=== PATIENT | female | born 1970 | race Caucasian/White ===

== ENCOUNTER → 2019-12-16 | Outpatient (CLI) | payer BC ==
--- NOTE | 2019-12-16 13:56 | CT ---
EXAMINATION TYPE: CT brain wo con DATE OF EXAM: 12/16/2019 COMPARISON: None HISTORY: Headaches Unenhanced CT of the brain was performed. The ventricles, basal cisterns and sulci overlying the cerebral convexities demonstrate a normal appe arance. There is no evidence for intracranial hemorrhage or sulcal effacement. No mass effects are seen. Osseous calvarium is intact. If symptoms persist consider MRI as clinically warranted. IMPRESSION: 1. No acute intracranial process is seen at this time.
[2019-12-16 16:15] LABS: Anisocytosis Slight; Basophils % (A) 0 %; Eosinophils # (A) 0.1 k/uL (0-0.7); Eosinophils % (A) 2 %; HCT 33.5 % (34.0-46.0); Hypochromasia Marked; Lymphocytes # (A) 1.3 k/uL (1.0-4.8); Lymphocytes % (A) 25 %; MCH 22.7 pg (25.0-35.0); MCHC 29.7 g/dL (31.0-37.0); MCV 76.3 fL (80.0-100.0); Mean Platelet Volume 7.5; Microcytosis Slight; Monocytes # (A) 0.2 k/uL (0-1.0); Monocytes % (A) 3 %; Neutrophils # (A) 3.6 k/uL (1.3-7.7); Neutrophils % (A) 68 %; Platelet Count 342 k/uL (150-450); RBC 4.39 m/uL (3.80-5.40); RDW 16.4 % (11.5-15.5); WBC 5.2 k/uL (3.8-10.6)
[2019-12-16 16:24] LABS: ALT 14 U/L (4-34); AST 22 U/L (14-36); African American GFR (CKD) >90 (>60 ml/min/1.73 sqM); Albumin 4.1 g/dL (3.5-5.0); Alkaline Phosphatase 50 U/L (38-126); Anion Gap 9 mmol/L; Blood Urea Nitrogen 11 mg/dL (7-17); Carbon Dioxide 24 mmol/L (22-30); Chloride 105 mmol/L (98-107); Glucose 87 mg/dL (74-99); Non-African American GFR(CKD) >90 (>60 ml/min/1.73 sqM); Potassium 3.9 mmol/L (3.5-5.1); Sodium 138 mmol/L (137-145); Total Bilirubin 0.7 mg/dL (0.2-1.3); Total Protein 6.9 g/dL (6.3-8.2)
[2019-12-16 16:45] LABS: Creatine Kinase MB 0.7 ng/mL (0.0-2.4); Troponin I <0.012 ng/mL (0.000-0.034)
== END | disposition home or self-care (01) ==
LOC: RADCTMAIN 13:20
PROVIDERS: ATTEND Nurse Practitioner Family
DX: R51 Headache (principal); R53.83 Other fatigue; R05 Cough; M79.602 Pain in left arm
CPT/HCPCS: 36415; 70450; 80053; 82553; 84484; 85025; 87502; 93005

== ENCOUNTER → 2020-03-16 | Outpatient (CLI) | payer BC ==
--- NOTE | 2020-03-16 10:27 | US ---
EXAMINATION TYPE: US transvaginal DATE OF EXAM: 03/16/2020 COMPARISON: NONE CLINICAL HISTORY: N92.0 Menorrhagia. Patient has had the same IUD for 12 or 13 years. TECHNIQUE: Transvaginal (TV). Date of LMP: 02/22/20 EXAM MEASUREMENTS: Uterus: 13.9 x 11.1 x 10.0 cm Endometrial Stripe: 1.1 cm Right Ovary: Obscured by overlying bowel gas Left Ovary: 3.9 x 3.2 x 2.7 cm 1. Uterus: fibroid measuring 3.8 x 3.5 x 3.6cm, bulky, heterogeneous 2. Endometrium: wnl 3. Right Ovary: Obscured by overlying bowel gas 4. Left Ovary: ovarian cyst measuring 3.1 x 2.5 x 2.2cm 5. Bilateral Adnexa: wnl 6. Posterior cul-de-sac: wnl Patient has the same IUD that she had in at her previous ultrasound in 2010. The IUD does not appear to be in the position it was in at the time. It is difficult to visualize. IMPRESSION: 1. Leiomyomatous change of the uterus. 2. Left ovarian cystic lesion may reflect a functional ovarian cyst. This could be confirmed with fol low-up study in 6 weeks. 3. IUD is noted however difficult to visualize given uterine heterogeneity.
== END | disposition home or self-care (01) ==
LOC: RADUSWWP 09:34
PROVIDERS: ATTEND Family Medicine
DX: N83.202 Unspecified ovarian cyst, left side (principal); D25.9 Leiomyoma of uterus, unspecified; Z97.5 Presence of (intrauterine) contraceptive device
CPT/HCPCS: 76830

== ENCOUNTER → 2020-03-17 | Outpatient (CLI) | payer BC ==
--- NOTE | 2020-03-17 10:36 | MM ---
Reason for exam: clinical finding. Last mammogram was performed 11 years and 7 months ago. History: Patient has history of other cancer at age 29. Physical Findings: Nurse did not find any significant physical abnormalities on exam. MG Diagnostic Mammo w CAD CHELO Bilateral CC, MLO, and XCCL view(s) were taken. The breast tissue is heterogeneously dense. This may lower the sensitivity of mammography. Finding: There are typically benign round, grouped/clustered calcifications in both breasts.There is a chronic nodularity in the left breast upper outer quadrant. These results were verbally communicated with the patient and result sheet given to the patient on 03/17/20. ASSESSMENT: Incomplete: need additional imaging evaluation, BI-RAD 0 RECOMMENDATION: Ultrasound of both breasts. (left nodularity, right focal pain)
--- NOTE | 2020-03-19 08:46 | USB ---
Reason for exam: additional evaluation requested from abnormal screening. History: Patient has history of other cancer at age 29. US Breast Limited BILAT Technologist: Nadja Navarrete Right limited breast ultrasound including focal area of concern, retroareolar and axilla demonstrates a 2.2 x 2.6 x 0.8cm oval, cystic lesion at 9 o'clock and a 0.8 x 0.7 x 0.5cm round, irregular, hypoechoic to echoic lesion at 9 o'clock, questionably corresponding to distortion on XCCL view , for which a biopsy is recommended. Left limited breast ultrasound including focal area of concern, retroareolar and axilla demonstrates a 0.6 x 0.6 x 0.6cm cystic lesion with debris at 3 o'clock, ducts at the posterior nipple, a 2.0 x 1.6 x 1.1cm cystic lesion with echoes at 1 o'clock and a 0.6 x 0.9 x 0.8cm round, irregular, anechoic to hypoechoic lesion at 1 o'clock for which a biopsy is recommended. These results were verbally communicated with the patient and result sheet given to the patient on 03/17/20. ASSESSMENT: Suspicious, BI-RAD 4 RECOMMENDATION: Ultrasound core biopsy of both breasts. Called Dr. David's office with mammographic findings and has scheduled an appointment for the patient for 03/19/20 at 11:30 with Roula Marcos. PRELIMINARY REPORT CALLED AND FAXED TO DR. DAVID ON 03/19/20.
== END | disposition home or self-care (01) ==
LOC: RADMAMWWP 08:58
PROVIDERS: ATTEND Family Medicine
DX: R92.8 Other abnormal and inconclusive findings on diagnostic imaging of breast (principal); N63.11 Unspecified lump in the right breast, upper outer quadrant
CPT/HCPCS: 77066

== ENCOUNTER → 2020-04-03 | Outpatient (CLI) | payer BC | END | disposition home or self-care (01) | LOC: LABWHC1 08:53 | PROVIDERS: ATTEND Family Medicine | DX: Z11.59 Encounter for screening for other viral diseases (principal) ==

== ENCOUNTER → 2020-04-07 | Day surgery (SDC) | payer BC ==
[2020-04-07 12:25] VITALS: RESP 16; TEMP 98.2
[2020-04-07 14:36] VITALS: BP 124/77; PULSE 68
--- NOTE | 2020-04-07 14:47 | USB ---
EXAMINATION TYPE: US biopsy breast VAD LT, US breast needle core RT, MG diagnostic mammo BI wo CAD DATE OF EXAM: 04/07/2020 CLINICAL HISTORY: Abnormal Mammo R92.8. TECHNIQUE: Ultrasound guided core biopsy the bilateral breasts. COMPARISON: Bilateral breast ultrasound dated 03/17/2020 and mammogram of the same date FINDINGS: The procedure of ultrasound guided core biopsy was explained to the patient. Benefits, alternatives, and risks were discussed. An informed consent was then obtained. Preprocedural timeout was performed. Site A: (Left) The patient was placed in supine positioning for imaging and for the procedure. The overlying skin was prepped and draped in usual sterile fashion. 10 cc of 1% lidocaine was used as anesthetic into the skin and subcutaneous tissue up to the 9 mm mass at the 10:00 position in the left breast. Under ultrasound guidance, a 12-gauge vacuum assisted biopsy gun device was used to obtain 3 core samples however adequacy of the specimen was questioned and therefore Bard 18-gauge needle was used to obtain 2 additional satisfactory samples. Following this, a coil-shaped biopsy marker was left in mass. Site B: (Right) The patient was placed in supine positioning for imaging and for the procedure. The overlying skin was prepped and draped in usual sterile fashion. 10 cc of 1% lidocaine was used as anesthetic into the skin and subcutaneous tissue up to an 8 mm mass at 9:00 in the right breast. Under ultrasound guidance, a Bard 18-gauge needle was used to obtain 4 core samples. Following this, a ribbon-shaped biopsy marker was left in mass. Biopsy marker does correspond to an area of distortion seen on the exaggerated cc view of the exam of 03/17/2020. The patient tolerated the procedure well without any immediate complication. The patient was kept in the radiology department for short stay after the procedure and then discharged home in stable condition. Post procedure mammogram demonstrates appropriate biopsy marker placements bilaterally. IMPRESSION: Successful, uncomplicated bilateral ultrasound guided core biopsies of a 9 mm mass at 10:00 on the left and an 8mm mass at 9:00 on the right, full pathology results to follow. Biopsy marker placements are located in areas of architectural distortion on the screening mammogram in therefore are suspicious (BI-RADS 4C). Pathology Results: Malignant A. LEFT BREAST, ONE O'CLOCK, ULTRASOUND GUIDED CORE BIOPSY: Invasive moderately differentiated ductal carcinoma (Grade 2). See Surgical Pathology Cancer Case Summary. B. RIGHT BREAST, NINE O'CLOCK, ULTRASOUND GUIDED CORE BIOPSY: Invasive well differentiated ductal carcinoma (Grade 1). See Surgical Pathology Cancer Case Summary. Recommendation Surgical consult of both breasts. EDSOND
== END ==
LOC: RADUSWWP 12:08
PROVIDERS: ATTEND Family Medicine
DX: C50.911 Malignant neoplasm of unspecified site of right female breast (principal); C50.912 Malignant neoplasm of unspecified site of left female breast; Z17.0 Estrogen receptor positive status [ER+]; Z88.1 Allergy status to other antibiotic agents
CPT/HCPCS: 88305; 88342; 88341; 77066; 19083; 19084; A4648; J2001

== ENCOUNTER → 2020-04-22 | Outpatient (CLI) | payer BC ==
[2020-04-22 15:44] VITALS: RESP 16
[2020-04-22 15:45] VITALS: BP 119/73; PULSE 71
--- NOTE | 2020-04-23 08:30 | BMR ---
EXAMINATION TYPE: MR breast BILAT wo/w con DATE OF EXAM: 04/22/2020 COMPARISON: Diagnostic bilateral breast mammogram March 17, 2020 BI-RADS 0. Limited bilateral breast ul trasound March 17, 2020 BI-RADS 4. HISTORY: Bilateral breast cancer diagnosed April 07, 2020 on biopsy 9:00 and left breast 1:00 small les ions. CONTRAST: Multiplanar, multisequence images of the breasts were acquired utilizing 9 mL intravenous Gadavist ga dolinium contrast. TECHNIQUE: A series of fat and water weighted images in the long and short axis views of both breasts are obtained in conjunction with dynamic contrast MRI with subtraction technique. Three-dimensional and additional postprocessing imaging is created on independent workstation and reviewed during offi cial interpretation of this study. FINDINGS: There is redemonstration of heterogeneously dense fibroglandular tissue throughout both parish asts. Corresponding to recent ultrasound studies, T2 and STIR weighted images show multiple thin-wall ed cysts scattered throughout the dense fibroglandular tissue bilaterally, for reference there is 2.7 x 1.2 cm thin-walled cyst in the posterior central tissue at level of nipple right breast axial seri es 301 image 24 noted. Inferior and just lateral to this there is a 1.4 cm thin-walled cyst of T1 and T2 hyperintensity could be proteinaceous cyst may be corresponding to nonsimple cyst on recent ultra sound. There is a cluster of smaller thin-walled cysts centrally in the left breast near level of nip ple same image. Delayed dynamic postcontrast images fail to show suspicious internal mammary adenopat hy bilaterally. There is fairly moderate to severe heterogeneous background enhancement bilaterally w hich makes evaluation slightly suboptimal. No fat-containing masses. With regards to the left breast there is susceptibility artifact from biopsy clip in the posterior de pth slightly lateral aspect just above the nipple series 601 image 54. No suspicious residual enhance ment or enhancing masses at this level are clearly identified. Remainder of left breast shows no area s of suspicious enhancement. No abnormal skin thickening is seen. No suspicious axillary adenopathy n oted. Chest wall is intact. Regards to the right breast artifact from biopsy clip is less well identified in the posterior far la teral position near 9:00 position, likely is present on image 54 series 601 adjacent to a thin-walled cyst along its posterior right aspect which correlates with ultrasound findings. Although I'm not 10 0% certain this is the level of the clip. No suspicious enhancing mass or residual enhancement at thi s level is identified. Remainder right breast shows no suspicious enhancement or enhancing masses. No suspicious skin thickening is seen. Chest wall is intact. Incidental small to moderate size hiatal hernia noted. There is probable 1.3 cm thin-walled cyst cent rally in the liver axial image 11 series 301. IMPRESSION: Recent sites of biopsy-proven malignancy bilaterally not well identified on MRI. No MRI e vidence for additional invasive malignancy in either breast. BI-RADS 6 biopsy-proven carcinoma right and left breasts. Recommendation: Appropriate surgical and oncologic management. Consider or advise genetic testing. Co nsider annual MRI surveillance the patient chooses conservative management.
== END | disposition home or self-care (01) ==
LOC: RADMRIMAIN 14:17
PROVIDERS: ATTEND Surgery
DX: C50.911 Malignant neoplasm of unspecified site of right female breast (principal); C50.912 Malignant neoplasm of unspecified site of left female breast
CPT/HCPCS: 77049; C8937; A9585

== ENCOUNTER 2020-06-01 07:33 | Day surgery (SDC) | payer BC ==
[2020-05-26 15:35] VITALS: BMI 31.5
[~2020-06-01 07:33] MED LIST: ACETAMINOPHEN TAB 500 MG TAB PO ONE; DEXAMETHASONE SOD PHOSPHATE 10 MG/ML 1 ML VIAL IV ONE; HEPARIN SODIUM,PORCINE 5,000 UNIT/ML 1 ML VIAL SQ ONE; LACTATED RINGERS 1,000 ML IV SCH; LIDOCAINE 1% (10MG/ML) FOR IV START INTRADERMA PRN; ONDANSETRON 4 MG/2 ML VIAL IVP ONE; Pre Op ABX Message 1 EACH MISC MISCELLANE ONE
--- NOTE | 2020-06-01 07:59 | P.GSHP ---
History of Present Illness H&P Date: 06/01/20 Chief Complaint: Bilateral breast cancer 49-year-old female seen in mid March after recent bilateral mammogram and ultrasound showed suspicious abnormalities subcentimeter in size. Biopsies of each spot bilaterally showed invasive carcinoma grade 2 on the left grade one on the right. ER positive bilaterally. HER-2/dick negative. MRI was performed which did not show any evidence of malignancy bilaterally. No suspicious adenopathy was seen. Patient had genetic testing which was negative per oncology. Patient presented at our multidisciplinary breast conference. Patient interested in bilateral lumpectomy versus mastectomy. Reconstruction was discussed as an option if mastectomy is chosen. Past Medical History Past Medical History: Cancer, GERD/Reflux, Musculoskeletal Disorder Additional Past Medical History / Comment(s): Hx of scoliosis, cervical cancer, "minor leaky valve", "amemia, passes out on period due to heavy bleeding", SOB at times, current bilateral breast cancer. History of Any Multi-Drug Resistant Organisms: None Reported Past Surgical History: Orthopedic Surgery Additional Past Surgical History / Comment(s): Hx cervical cancer - cone biopsy, hx of knee surgery as child, wisdom teeth removed. Past Anesthesia/Blood Transfusion Reactions: Postoperative Nausea & Vomiting (PONV) Additional Past Anesthesia/Blood Transfusion Reaction / Comment(s): Mom PONV. Past Psychological History: No Psychological Hx Reported Smoking Status: Former smoker Past Alcohol Use History: Occasional Additional Past Alcohol Use History / Comment(s): Smoked in College. Past Drug Use History: None Reported - Past Family History Mother Family Medical History: No Reported History Medications and Allergies Home Medications Medication Instructions Recorded Confirmed Type No Known Home Medications 05/26/20 05/26/20 History Allergies Allergy/AdvReac Type Severity Reaction Status Date / Time metronidazole [From Flagyl] Allergy Swelling Verified 05/26/20 15:13 Tape AdvReac Rash/Hives Uncoded 05/26/20 15:38 Surgical - Exam Physical exam: General: Well-developed, well-nourished HEENT: Normocephalic, sclerae nonicteric Right breast: Recent scar site noted, no adenopathy Left breast: Recent scar site noted, no adenopathy Abdomen: Nontender, nondistended Extremities: No edema Neuro: Alert and oriented Assessment and Plan (1) Bilateral malignant neoplasm of breast in female, estrogen receptor positive Narrative/Plan: After long discussion with the patient she remains interested in bilateral lumpectomy with wire localization and sentinel lymph node injection/biopsy. We'll proceed with that procedure at this time. Risks of bleeding, infection, possible need for additional surgeries, numbness, scarring, dimpling, nerve injury, lymphedema, recurrence were reviewed. She understands and wishes to proceed. Current Visit: Yes Status: Acute Code(s): C50.911 - MALIGNANT NEOPLASM OF UNSP SITE OF RIGHT FEMALE BREAST; C50.912 - MALIGNANT NEOPLASM OF UNSPECIFIED SITE OF LEFT FEMALE BREAST; Z17.0 - ESTROGEN RECEPTOR POSITIVE STATUS [ER+] SNOMED Code(s): 312189335
[2020-06-01] MEDS ORDERED: ALPRAZolam 0.5 MG TAB ONE (08:32)
[2020-06-01] MEDS ORDERED: LIDOCAINE 1% INJ 10MG/ML (20 ML MDV) SQ ONE (08:57)
--- NOTE | 2020-06-01 10:08 | NM ---
EXAMINATION TYPE: NM sentinel node injection, NM sentinel node injection DATE OF EXAM: 06/01/2020 COMPARISON: NONE HISTORY: Newly diagnosed Bilateral breast cancer. TECHNIQUE AND FINDINGS: The procedure of sentinel lymph node injection was explained to the patient. The benefits, alternatives, and risks were discussed. An informed consent was then obtained. Overlying skin is cleaned with sterile alcohol. Following this, 542 (accession [id number]), 513 (acces vijay [id number]) uCi Tc99m Tilmanocept was injected in the upper outer aspect of the right and left nip ples intradermally. The patient tolerated the procedure well without any immediate complication. The patient was kept in the radiology department for short stay after the procedure and then taken to surgery for surgical p rocedure what is presumed intraoperative gamma probe will be used for sentinel lymph node detection. IMPRESSION: Bilateral breast radiotracer injection for sentinel node localization as above.
[2020-06-01] MEDS ORDERED: ACETAMINOPHEN TAB 500 MG TAB ONE (10:14)
[2020-06-01] MEDS ORDERED: ONDANSETRON 4 MG/2 ML VIAL ONE ×2 (10:14→16:41)
[2020-06-01] MEDS ORDERED: HEPARIN SODIUM,PORCINE 5,000 UNIT/ML 1 ML VIAL ONE (10:14)
[2020-06-01] MEDS ORDERED: HYDROmorphone (PF) 1 MG/ML ONE (11:48)
[2020-06-01] MEDS ORDERED: fentaNYL (PF) 50 MCG/ML 2 ML AMP ONE (11:48)
[2020-06-01] MEDS ORDERED: MIDAZOLAM 2 MG/2 ML VIAL ONE (11:48)
[2020-06-01] MEDS ORDERED: PROPOFOL 10 MG/ML 20 ML VIAL IV ONE (11:48)
[2020-06-01] MEDS ORDERED: SUCCINYLCHOLINE CHLORIDE 100 MG/5 ML SYR IV ONE (11:48)
[2020-06-01] MEDS ORDERED: LIDOCAINE 1% INJ 10MG/ML (20 ML MDV) ONE (11:48)
[2020-06-01] MEDS ORDERED: SODIUM CHLORIDE 0.9% 100 ML with ceFAZolin 2,000 MG IV ONE ×2 (12:05)
[2020-06-01] MEDS ORDERED: METHYLENE BLUE 10 MG/ML (10 ML VIAL) INJ ONE (12:14)
[2020-06-01] MEDS ORDERED: BUPIVACAINE (PF) 0.25% 30 ML VIAL SQ ONE ×2 (12:17→13:50)
[2020-06-01] MEDS ORDERED: LACTATED RINGERS 1,000 ML IV ONE (12:38)
--- NOTE | 2020-06-01 14:09 | USB ---
EXAM: Needle localization with wire placement. CLINICAL HISTORY: Newly diagnosed bilateral breast cancer. TECHNIQUE: Needle localization with wire placement and surgical excision of area of concern in the bilateral breasts. Bilateral breast specimen mammograms. COMPARISON: MRI bilateral breasts April 22, 2020 and older studies. FINDINGS: The procedure of needle localization with wire placement and than surgical excision was explained to the patient. Benefits, alternatives, and risks were discussed. An informed consent was then obtained. Due to marked posterior location of the right breast lesion, ultrasound-guided needle localization is performed. Preprocedure ultrasound redemonstrates 8 x 10 mm vague hypoechoic shadowing lesion 9:00 position adjacent to a thin-walled cyst at area of biopsy-proven cancer. The overlying skin was prepped and draped in usual sterile fashion. Lidocaine was used as anesthetic into the skin and subcutaneous tissue up to the level of area of concern. Under ultrasound guidance, 7 cm needle was localized through the lesion. Attention then turned to the left breast. The shortest pathway for procedure was chosen. Shortest pathway was lateral approach. The overlying skin was prepped and draped in usual sterile fashion. Lidocaine was used as anesthetic into the skin and subcutaneous tissue up to the level of area of concern. A 7 cm needle was used. It was placed via a lateral approach under mammographic guidance. Subsequent 90 degrees mammogram show the needle to be in satisfactory position relative to the targeted area. At this point, wire was placed and the needle was withdrawn. The wire was fixed to patient's skin. Images were marked for surgeon. The patient tolerated the procedure well without any immediate complication. The patient was kept in the radiology department for short stay after the procedure and then taken to surgery for bilateral surgical excision. Targeted biopsy clips and wires are identified in bilateral specimen mammogram. The patient was kept in hospital for short stay after the procedure and then discharged home in stable condition. IMPRESSION: Successful, uncomplicated needle localization with wire placement and surgical excision of targeted biopsy clips in the bilateral breasts, full pathology results to follow. Newly diagnosed known bilateral breast cancers. Pathology Results: Malignant A. RIGHT AXILLARY SENTINEL LYMPH NODES: Two lymph nodes negative for metastasis. CK7 and MARGIE immunoperoxidase stains are confirmatory (controls appropriate). B. LEFT AXILLARY SENTINEL LYMPH NODES: Two lymph nodes negative for metastasis. CK7 and MARGIE immunoperoxidase stains are confirmatory (controls appropriate). C. RIGHT BREAST, NEW SUPERIOR/ANTERIOR/INFERIOR MARGINS, EXCISION: Extensive lobular neoplasia (ALH/LCIS) and fibrocystic changes. Negative for invasive ductal carcinoma or ductal carcinoma in situ (DCIS). D. RIGHT BREAST, LUMPECTOMY: Invasive well differentiated ductal carcinoma (Grade 1) with intermediate grade DCIS and extensive lobular neoplasia (ALH/LCIS). Invasive ductal carcinoma extends to the black (superior) and purple (posterior) inked margins. Margins negative for DCIS. See Surgical Pathology Cancer Case Summary and Comment. E. LEFT BREAST, LUMPECTOMY: Invasive moderately differentiated ductal carcinoma (Grade 2), margins negative for malignancy. See Surgical Pathology Cancer Case Summary. Recommendation Oncologic management. MTDD
[2020-06-01 14:13] VITALS: TEMP 97.2
[2020-06-01] MEDS ORDERED: NALOXONE 0.4 MG/ML 1 ML VIAL IV PRN (14:21)
--- NOTE | 2020-06-01 14:27 | P.OP ---
Date of Procedure: 06/01/20 Procedure(s) Performed: PREOPERATIVE DIAGNOSIS: Bilateral breast cancer POSTOPERATIVE DIAGNOSIS: Same PROCEDURE: Bilateral Breast wire localization lumpectomy with sentinel lymph node biopsy SURGEON: Braden EBL: Minimal ANESTHESIA: General COMPLICATIONS: None OPERATIVE PROCEDURE: Patient was placed on the operating room table in the supine position. 2 mL of methylene blue was injected into the subareolar space bilaterally. Both breasts were then massaged for 5 minutes. The chest wall was prepped and draped in usual sterile fashion. The right axilla was addressed at that time. The hot spot in the right axilla was identified. A small curvilinear incision was made using the scalpel. Dissection down through the subcutaneous tissues took place using electrocautery. Using the neoprobe I identified a total of 2 sentinel lymph nodes. Both of these were blue in color. Clinically these appeared benign and were sent to pathology in formalin. The left axilla was then addressed in a similar fashion. The hot spot in the left axilla was identified. A small curvilinear incision was made using the scalpel. Dissection down through the subcutaneous tissues took place using electrocautery. Using the neoprobe I identified a total of 2 sentinel lymph nodes. Both of these were blue in color. Clinically these also appeared benign and were sent to pathology in formalin. The right lumpectomy site was then addressed. This was present at the 9:00 location. A curvilinear incision was made adjacent to the wire entrance site. I followed the wire down into the breast tissue. An adequate lumpectomy specimen then took place around the wire. Margins of 1.5-2 cm worth attempted to be achieved. Palpation of the specimen suggested that the anterior margin was somewhat close. I took an additional margin that incorporated the superior anterior and inferior margin. This new margin was painted on the new specimen side. The initial specimen was also painted the appropriate 6 colors. Clips were used to identify the lumpectomy cavity. The clip was confirmed to be within the lumpectomy specimen by radiology. The subcutaneous tissues were closed using 3-0 Vicryl sutures. The skin was closed using a running 4-0 Monocryl stitch. The left lumpectomy site was then addressed in a similar fashion. This wire was present at the 2 to 3:00 location directed medially. A curvilinear incision was made adjacent to the wire entrance site. I followed the wire down into the breast tissue. An adequate lumpectomy specimen then took place around the left breast wire. Margins of 1.5-2 cm worth attempted to be achieved. The specimen was then painted the appropriate 6 colors. Clips were used to identify the lumpectomy cavity. The clip was confirmed to be within the lumpectomy specimen by radiology. The subcutaneous tissues were closed on the left using 3-0 Vicryl sutures as well. The skin was closed using a running 4-0 Monocryl stitch. Skin glue and sterile dressings were then applied bilaterally. DISPOSITION: Stable to recovery room
[2020-06-01 14:31] VITALS: RESP 16
[2020-06-01] MEDS: HYDROmorphone 0.5 MG/0.5 ML SYRINGE IVP PRN ×3 (14:40→15:05)
[2020-06-01] MEDS ORDERED: diphenhydrAMINE 50 MG/ML 1 ML VIAL IVP ONE (14:56)
[2020-06-01] MEDS ORDERED: ONDANSETRON 4 MG/2 ML VIAL IVP ONE (16:35)
[2020-06-01 16:47] VITALS: BP 131/79; PULSE 64
--- NOTE | 2020-06-03 08:37 | CDI ---
Date: 06.03.2020 CDS/Guidance Counselor Name: Li Donohue Phone: If any questions, call Cassidy Mcfarlane Production Leader at [phone] Patient Name: Violetta Mercedes Admit Date 06.01.20 Discharge Date: 06.01.20 ATTENTION: The [facility] Coding Staff appreciate your assistance in clarifying documentation. Please respond to the clarification below the line at the bottom and electronically sign. The [facility] Coding staff will review the response and follow-up if needed. Please note: Queries are made part of the Legal Health Record. If you have any questions, please contact the Production Leader. Dear Dr. Feliciano Please document whether the lymph node biopsy on the Right and Left Axillary regions were deep or superficial. Right: _x_Deep __Superficial Left: _x_Deep __Superficial Thank you for your kind consideration. The lymph node biopsies performed at time of sentinel lymph node biopsy are considered deep. Please note for future cases. MTDD
== END 2020-06-01 16:55 | disposition home or self-care (01) ==
LOC: OR 07:33
PROVIDERS: ATTEND Surgery
DX: C50.912 Malignant neoplasm of unspecified site of left female breast (principal); C50.911 Malignant neoplasm of unspecified site of right female breast; N60.11 Diffuse cystic mastopathy of right breast; K21.9 Gastro-esophageal reflux disease without esophagitis; D64.9 Anemia, unspecified; M41.9 Scoliosis, unspecified; Z17.0 Estrogen receptor positive status [ER+]; Z85.41 Personal history of malignant neoplasm of cervix uteri; Z86.79 Personal history of other diseases of the circulatory system; Z98.890 Other specified postprocedural states; Z91.89 Other specified personal risk factors, not elsewhere classified; Z87.891 Personal history of nicotine dependence; Z88.1 Allergy status to other antibiotic agents; Z91.09 Other allergy status, other than to drugs and biological substances; Z84.89 Family history of other specified conditions
CPT/HCPCS: 19301; 38525; 81025; 88342; 88307; 88341; 76098 ×2; 19285; 19286; 38792; A9520; J2250; J1200; J1644; J1100; J2405; J0690; J2001; Q9968; J3010; J1170 ×2; J0330; J2704

== ENCOUNTER 2020-06-29 08:47 | Day surgery (SDC) | payer BC ==
[2020-06-25 15:37] VITALS: BMI 30.5
[~2020-06-29 08:47] MED LIST changes: +HYDROmorphone 0.5 MG/0.5 ML SYRINGE IVP PRN; -LIDOCAINE 1% (10MG/ML) FOR IV START INTRADERMA PRN
[2020-06-29] MEDS ORDERED: HEPARIN SODIUM,PORCINE 5,000 UNIT/ML 1 ML VIAL ONE (09:22)
[2020-06-29] MEDS ORDERED: ONDANSETRON 4 MG/2 ML VIAL ONE ×2 (09:22→13:23)
[2020-06-29] MEDS ORDERED: LIDOCAINE 1% (10MG/ML) FOR IV START INTRADERMA ONE (09:22)
[2020-06-29] MEDS ORDERED: ACETAMINOPHEN TAB 500 MG TAB ONE (09:22)
[2020-06-29] MEDS ORDERED: MIDAZOLAM 2 MG/2 ML VIAL IV ONE ×2 (11:00→13:22)
[2020-06-29 11:30] VITALS: RESP 16
[2020-06-29] MEDS ORDERED: LACTATED RINGERS 1,000 ML IV ONE (12:16)
[2020-06-29] MEDS ORDERED: fentaNYL (PF) 50 MCG/ML 2 ML AMP ONE (13:23)
[2020-06-29] MEDS ORDERED: SUCCINYLCHOLINE CHLORIDE 100 MG/5 ML SYR IV ONE (13:23)
[2020-06-29] MEDS ORDERED: LIDOCAINE 1% INJ 10MG/ML (20 ML MDV) ONE (13:23)
[2020-06-29] MEDS ORDERED: PROPOFOL 10 MG/ML 20 ML VIAL IV ONE (13:23)
[2020-06-29] MEDS ORDERED: BUPIVACAINE (PF) 0.25% 30 ML VIAL SQ ONE ×2 (13:50→13:52)
[2020-06-29] MEDS ORDERED: SODIUM CHLORIDE 0.9% 100 ML with ceFAZolin 2,000 MG IV ONE ×2 (13:51)
[2020-06-29] MEDS ORDERED: NALOXONE 0.4 MG/ML 1 ML VIAL IV PRN (14:20)
[2020-06-29] MEDS ORDERED: traMADol 50 MG TAB PO PRN (14:20)
[2020-06-29 14:36] VITALS: TEMP 97.6
[2020-06-29] MEDS ORDERED: traMADol 50 MG TAB ONE (15:45)
[2020-06-29] MEDS ORDERED: traMADol 50 MG TAB PO ONE (15:47)
[2020-06-29 16:25] VITALS: BP 128/76; PULSE 70
--- NOTE | 2020-06-29 16:34 | P.OP ---
Date of Procedure: 06/29/20 Procedure(s) Performed: PREOPERATIVE DIAGNOSIS: Right breast cancer POSTOPERATIVE DIAGNOSIS: Same PROCEDURE: Right Breast re-lumpectomy SURGEON: Braden EBL: Minimal ANESTHESIA: General COMPLICATIONS: None OPERATIVE PROCEDURE: Patient was placed on the operating room table in the supine position. The breast was prepped and draped in usual sterile fashion. The right axilla was addressed at that time. The previous incision was reexcised sharply. The subcutaneous tissues were dissected using electrocaute ry. The lumpectomy specimen was entered and the fluid was evacuated. The posterior margin was then fully excised with a thickness of approximately 8-10 mm. I did include small portions of the superior inferior medial and lateral margins as well. The new fresh edge of the specimen was painted fabiana in color. This was sent to pathology as a fresh specimen. Clips were used to define the posterior dissection. The subcutaneous tissues were closed using 3-0 Vicryl sutures. The skin was closed using a running 4-0 Monocryl stitch. Skin glue and sterile dressings were then applied. DISPOSITION: Stable to recovery room
== END 2020-06-29 16:43 | disposition home or self-care (01) ==
LOC: OR 08:47
PROVIDERS: ATTEND Surgery
DX: C50.911 Malignant neoplasm of unspecified site of right female breast (principal); Z85.41 Personal history of malignant neoplasm of cervix uteri; Z85.3 Personal history of malignant neoplasm of breast; M41.9 Scoliosis, unspecified; Z98.890 Other specified postprocedural states; Z82.49 Family history of ischemic heart disease and other diseases of the circulatory system; I38 Endocarditis, valve unspecified; Z87.891 Personal history of nicotine dependence; K21.9 Gastro-esophageal reflux disease without esophagitis; Z88.1 Allergy status to other antibiotic agents; Z88.5 Allergy status to narcotic agent; Z91.09 Other allergy status, other than to drugs and biological substances
CPT/HCPCS: 19301; 81025; 88307; J2250; J1644; J1100; J2405; J0690; J2001; J3010; J0330; J2704; J1170

== ENCOUNTER → 2020-11-27 | Outpatient (CLI) | payer BC ==
[2020-11-27 11:22] LABS: Basophils % (A) 0 %; Eosinophils # (A) 0.2 k/uL (0-0.7); Eosinophils % (A) 5 %; Lymphocytes % (A) 24 %; MCH 27.4 pg (25.0-35.0); MCHC 32.4 g/dL (31.0-37.0); MCV 84.6 fL (80.0-100.0); Mean Platelet Volume 7.3; Monocytes # (A) 0.2 k/uL (0-1.0); Monocytes % (A) 4 %; Neutrophils # (A) 2.6 k/uL (1.3-7.7); Neutrophils % (A) 64 %; Platelet Count 233 k/uL (150-450); RBC 4.37 m/uL (3.80-5.40); RDW 15.8 % (11.5-15.5); WBC 4.1 k/uL (3.8-10.6)
[2020-11-27 11:47] LABS: African American GFR (CKD) >90 (>60 ml/min/1.73 sqM); Anion Gap 8 mmol/L; Blood Urea Nitrogen 15 mg/dL (7-17); Calcium 9.1 mg/dL (8.4-10.2); Carbon Dioxide 25 mmol/L (22-30); Chloride 105 mmol/L (98-107); Glucose 89 mg/dL (74-99); Non-African American GFR(CKD) 80 (>60 ml/min/1.73 sqM); Potassium 4.1 mmol/L (3.5-5.1); Sodium 138 mmol/L (137-145)
== END | disposition home or self-care (01) ==
LOC: LABPAT 10:05
PROVIDERS: ATTEND Obstetrics & Gynecology
DX: Z01.818 Encounter for other preprocedural examination (principal)
CPT/HCPCS: 36415; 80048; 85025; 86850; 86900; 86901

== ENCOUNTER 2020-12-04 05:35 | Inpatient (IN) | payer BC ==
[2020-11-27 15:04] VITALS: BMI 30.8
--- NOTE | 2020-12-03 13:00 | P.HPOB ---
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 She had not been in the office for many years. IUD was placed in 2005. Ultrasound showed fibroids (largest 3.8 cm) and IUD out of position. I could not see the strings in the office. Violetta unfortunately was also diagnosed with breast cancer this last year and Dr. 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 She how presents for total abdominal hysterectomy and bilateral salpingoophrectomy. She has a history of WILLIAM III s/p cone and is not a candidate for robotic surgery. Review of Systems Genitourinary: Reports as per HPI, Reports menorrhagia Past Medical History Past Medical History: Cancer, GERD/Reflux, Musculoskeletal Disorder Additional Past Medical History / Comment(s): john breast CA-radiation , Hx of scoliosis, cervical cancer, "minor leaky valve", "amemia, passes out on period due to heavy bleeding", SOB at times. History of Any Multi-Drug Resistant Organisms: None Reported Past Surgical History: Orthopedic Surgery Additional Past Surgical History / Comment(s): rt breast margins redone May 2020,Jhon breast lumpectomies sentinal node bxs 06-01-20,Hx cervical dysplasia (WILLIAM III) - cone biopsy, hx of knee surgery as child, wisdom teeth removed. Past Anesthesia/Blood Transfusion Reactions: Postoperative Nausea & Vomiting (PONV) Additional Past Anesthesia/Blood Transfusion Reaction / Comment(s): Mom PONV,no hx blood transfusion Smoking Status: Former smoker Past Alcohol Use History: None Reported Past Drug Use History: None Reported - Past Family History Mother Family Medical History: No Reported History Medications and Allergies Home Medications Medication Instructions Recorded Confirmed Type Multivitamins, Thera [Multivitamin 1 tab PO DAILY 06/25/20 11/27/20 History (formulary)] Tamoxifen Citrate 20 mg PO DAILY 11/27/20 11/27/20 History Allergies Allergy/AdvReac Type Severity Reaction Status Date / Time metronidazole [From Flagyl] Allergy Swelling Verified 11/27/20 14:40 oxycodone AdvReac Nausea & Verified 11/27/20 14:40 Vomiting Tape AdvReac Rash/Hives,paper Uncoded 11/27/20 14:40 tape is ok Exam - OBG Physical Exam Vulva: both: normal Vagina: normal moisture, no discharge Cervix: Surgical changes Uterus: enlarged Results Ultrasound on 02/2020 showed fibroids (largest 3.8cm), IUD out of place, normal adnexa Assessment and Plan Assessment: This is a pleasant 50 yr female with menorrhagia, uterine fibriods, retained IUD, and increased risk of gynecologic cancers who presents for total abdominal hysterectomy and bilateral salpingoopherectomy. I have discussed this surgery and risks in detail: infection, bleeding, possible injury to bowel/bladder/vessels/ureters/ and/or other organs requiring further surgery and/or prolonged catheterization. She understands that she is also at increased risk of PE/DVT due to surgery and history of cancer (breast). All of her questions were answered and a written consent obtained. 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
[2020-12-04] MEDS ORDERED: DEXAMETHASONE SOD PHOSPHATE 4 MG/ML 1 ML VIAL IV ONE (05:40)
[2020-12-04] MEDS ORDERED: SCOPOLAMINE 1.5MG/72HR PATCH TRANSDERM ONE (05:40)
[2020-12-04] MEDS ORDERED: ONDANSETRON 4 MG/2 ML VIAL IVP ONE (05:40)
[2020-12-04] MEDS ORDERED: LACTATED RINGERS 1,000 ML IV SCH (05:40)
[2020-12-04] MEDS ORDERED: MIDAZOLAM 2 MG/2 ML VIAL IV PRN (05:40)
[2020-12-04] MEDS ORDERED: LIDOCAINE 1% (10MG/ML) FOR IV START INTRADERMA ONE (06:12)
[2020-12-04] MEDS: fentaNYL (PF) 50 MCG/ML 2 ML AMP IV PRN ×3 (06:37→08:56)
[2020-12-04] MEDS ORDERED: PROPOFOL 10 MG/ML 20 ML VIAL IV ONE (06:58)
[2020-12-04] MEDS ORDERED: fentaNYL (PF) 50 MCG/ML 2 ML AMP ONE (06:58)
[2020-12-04] MEDS ORDERED: SUCCINYLCHOLINE CHLORIDE 100 MG/5 ML SYR IV ONE (06:58)
[2020-12-04] MEDS ORDERED: LIDOCAINE 1% INJ 10MG/ML (20 ML MDV) ONE (06:58)
[2020-12-04] MEDS ORDERED: HYDROmorphone (PF) 1 MG/ML ONE (06:58)
[2020-12-04] MEDS ORDERED: ROCURONIUM 10 MG/ML (10 ML VIAL) IV ONE (06:58)
[2020-12-04] MEDS ORDERED: KETOROLAC 15 MG/ML 1 ML VIAL ONE (06:58)
[2020-12-04] MEDS ORDERED: MIDAZOLAM 2 MG/2 ML VIAL ONE (06:58)
[2020-12-04] MEDS ORDERED: MORPHINE SULFATE (PF) 0.3 MG/0.3 ML SYR ONE (06:58)
[2020-12-04] MEDS ORDERED: NEOSTIGMINE 1 MG/ML 10 ML VIAL ONE (06:58)
[2020-12-04] MEDS ORDERED: GLYCOPYRROLATE 0.2 MG/ML 2 ML VIAL ONE (06:58)
[2020-12-04] MEDS ORDERED: LACTATED RINGERS 1,000 ML IV ONE ×2 (07:55→09:23)
--- NOTE | 2020-12-04 08:34 | P.OP ---
Date of Procedure: 12/04/20 Preoperative Diagnosis: #1: Menorrhagia. #2: Uterine fibroids. #3: Retained IUD. #4: Genetic predisposition to gynecologic cancer Postoperative Diagnosis: Same Procedure(s) Performed: Total abdominal hysterectomy and bilateral salpingo-oophorectomy. Anesthesia: GETA Surgeon: Franko Hickey Retail Pharmacist #1: Lisseth Burton Estimated Blood Loss (ml): 350 Pathology: other (Uterus with cervix and bilateral fallopian tubes and ovaries. IUD removed post surgery) Condition: stable Disposition: PACU Indications for Procedure: Please see dictated H&P for intimate details of this patient's admission. Brief summary this is a pleasant 50-year-old 2 para 2 female with long- standing menorrhagia and known uterine fibroids and also with known retained IUD. Patient had a recent diagnosis of breast cancer and her medical oncologist called me and requested removal of her tubes and ovaries secondary to increased risk of gynecologic cancers. Patient I discussed options and elected proceed with total abdominal hysterectomy and bilateral salpingo-oophorectomy. Patient I have had a long discussion about the surgery and risks and risks of infection, bleeding, possible injury to bowel, bladder, vessels, ureters, and/or other organs. Patient understands risk of DVT and pulmonary embolism. All the patient's questions were answered written consent is obtained. Operative Findings: This patient had a large uterus approximately 14-16 weeks size with multiple fibroids. Right tube and ovary appear normal. The left ovary had a large functional cyst but otherwise appeared normal. Upper abdomen grossly appeared normal. The IUD was removed after the specimen was removed and it was in the lower uterine segment of the uterus. Description of Procedure: This patient is taken to the operating room where she is laid in the supine position. She subsequently undergoes general endotracheal anesthesia without incident. With an adequate level of anesthesia, patient has a vaginal perineal abdominal prep and drape. Patient is a Woods catheter placed to straight drain. Scalpels and taken and a Pfannenstiel skin incision is then made. Second scalpel is taken down to the fascia and the fascia scored with a knife. Fascial incision extended bilaterally using Stanton scissors. Fascia is dissected off the rectus muscles sharply. Rectus muscles are and the peritoneum identified and entered sharply. Peritoneal incision extended superior and inferiorly without difficulty. Inspection of the pelvis shows a large uterus, approximately 14-16 weeks size that is mobile. Ovaries appear normal with the exception of functional cyst on the left ovary. Upper abdomen grossly appears normal. The Parchman retractor is then placed. The bowels packed up out of the pelvis with a large laparotomy sponge. 2 curved Laura's are placed across the cornea of the uterus. Using Ashvin clamps, serial clamps are done of the uterine ovarian ligaments. This is done bilaterally. Careful dissection is then done of the bladder peritoneum with the Metzenbaum scissors. This comes down easily off the lower uterine segment. Serial clamps and then done of the cardinal and uterosacral ligaments with Ashvin clamps these were transected and suture ligated with 0 Vicryl. Excellent hemostasis is noted. Remaining get down to the vaginal apex using 2 curved Heaneys amputate the uterus with attached cervix. This is handed off to pathology. Vaginal cuff is then demarcated with 2 cokers. Is and closed using 0 Vicryl running locked fashion. Copious irrigation is done. Excellent hemostasis is noted. Final inspection shows all to be hemostatic. The wet laparotomy sponges removed. The Parchman retractor is removed. All counts are correct 3. At this time we did notice that the end of the Brielle retractor that was outside of the body cavity only had 1 nut on it. It was our feeling that this most likely came up from central sterile this way however to be 100% safe, a flat plate of the abdomen was done in initial examination by myself showed no evidence of the nut. With this reassured, the peritoneum was then closed using 0 Vicryl running fashion. Rectus muscles reapproximated in 0 Vicryl interrupted fashion. Fascial incision is then closed using 0 PDS. Fascial incision is intact and hemostatic. Subcutaneous tissues and closed using a 3-0 Vicryl. Skin is and closed using s taples. All counts are correct 3. There are no complications. Urine and the catheters clear. Patient is awakened from anesthesia and taken recovery room in satisfactory condition.
--- NOTE | 2020-12-04 08:37 | XR ---
EXAMINATION TYPE: XR KUB portable DATE OF EXAM: 12/04/2020 COMPARISON: NONE HISTORY: exam for foreign body TECHNIQUE: Single supine KUB image of the abdomen is obtained FINDINGS: No evidence for radiopaque foreign body. Surgical simona overlie the lower pelvis. IMPRESSION: 1. No radiopaque foreign body identified.
[2020-12-04] MEDS ORDERED: NALOXONE 0.4 MG/ML 1 ML VIAL IV PRN (09:22)
[2020-12-04] MEDS ORDERED: diphenhydrAMINE 50 MG/ML 1 ML VIAL IVP PRN ×2 (09:22→10:45)
--- NOTE | 2020-12-04 09:25 | P.ANPRN ---
Procedure Note - Anesthesia - Epidural/Spinal Spinal Time Out Performed: Yes Date of Procedure: 12/04/20 Procedure Start Time: 06:36 Procedure Stop Time: 06:51 Location of Patient: PreOp Indication: Acute Post-Operative Pain, Requested by Surgeon (Dr Hickey) Sedation Type: Sedate with meaningful contact maintained Preparation: Sterile Prep Position: Sitting Catheter: None Needle Guage: 25 Injectate: Other (Duramorph 300mcg, fentanyl 25mcg) Blood Aspirated: No Pain Paresthesia on Injection Noted: No Events: Uneventful and Well Tolerated
[2020-12-04] MEDS ORDERED: Acetaminophen-Codeine 300-30mg TAB PO PRN ×2 (10:45)
[2020-12-04] MEDS ORDERED: ONDANSETRON 4 MG/2 ML VIAL IVP PRN (10:45)
[2020-12-04] MEDS ORDERED: SIMETHICONE 80 MG CHEWABLE PO PRN (10:45)
[2020-12-04] MEDS: LACTATED RINGERS 1,000 ML IV SCH ×3 (14:40→23:51)
[2020-12-04] MEDS: SENNOSIDES-DOCUSATE SODIUM 1 EACH TAB PO SCH ×2 (19:58→20:00)
[2020-12-04] MEDS: KETOROLAC 15 MG/ML 1 ML VIAL IVP PRN (19:58)
[2020-12-05] MEDS: KETOROLAC 15 MG/ML 1 ML VIAL IVP PRN ×2 (02:01→07:52)
[2020-12-05] MEDS ORDERED: HYDROcodone/APAP 5-325MG 1 EACH TAB PO PRN ×2 (06:18)
--- NOTE | 2020-12-05 06:22 | P.PN ---
Progress Note - Text Progress Note Date: 12/05/20 Postoperative day #1. Patient is resting without complaints. Vital signs are stable she's afebrile. Incision is intact and dry. Catheter is discontinued approximately hour and a half ago still attempting to urinate. Urine output overnight was excellent. CBC pending at time of this dictation. My impression this is a normal postoperative course. Plan is to advance her diet, check CBC, allow the patient to shower, continue routine postoperative care.
[2020-12-05 06:25] LABS: Basophils % (A) 0 %; Eosinophils # (A) 0.1 k/uL (0-0.7); Eosinophils % (A) 2 %; HCT 29.3 % (34.0-46.0); Lymphocytes # (A) 0.9 k/uL (1.0-4.8); Lymphocytes % (A) 29 %; MCH 27.5 pg (25.0-35.0); MCHC 32.5 g/dL (31.0-37.0); MCV 84.6 fL (80.0-100.0); Mean Platelet Volume 7.4; Monocytes # (A) 0.2 k/uL (0-1.0); Monocytes % (A) 6 %; Neutrophils % (A) 61 %; Platelet Count 173 k/uL (150-450); RBC 3.46 m/uL (3.80-5.40); RDW 15.6 % (11.5-15.5); WBC 3.2 k/uL (3.8-10.6)
[2020-12-05 06:28] LABS: HGB 9.5 gm/dL (11.4-16.0)
--- NOTE | 2020-12-05 06:57 | P.PN ---
Progress Note - Text Date: 12/05/2020 Time: 06:43 The patient is status post, total abdominal hysterectomy, postoperative day #1. Vital signs stable VAS: 0-1-10 Patient has no complaints of pain. The patient incurred some minimal itching yesterday, this itching is now subsiding. Pain meds to be managed by service.
[2020-12-05] MEDS: LACTATED RINGERS 1,000 ML IV SCH (08:01)
[2020-12-05] MEDS ORDERED: IRON AG/C/B12/CA/SUC.ACID/STOM 1 EACH TAB PO SCH (09:00)
[2020-12-05] MEDS: ACETAMINOPHEN TAB 325 MG TAB PO PRN ×3 (10:54→23:59)
[2020-12-05] MEDS: IBUPROFEN 600 MG TAB PO PRN ×2 (14:36→21:02)
[2020-12-05] MEDS: SENNOSIDES-DOCUSATE SODIUM 1 EACH TAB PO SCH ×2 (14:37→20:36)
[2020-12-05 15:51] VITALS: RESP 16
[2020-12-06] MEDS: IBUPROFEN 600 MG TAB PO PRN ×4 (03:02→21:01)
[2020-12-06 05:47] LABS: Basophils % (A) 0 %; Eosinophils # (A) 0.1 k/uL (0-0.7); Eosinophils % (A) 3 %; HCT 31.2 % (34.0-46.0); HGB 10.4 gm/dL (11.4-16.0); Lymphocytes # (A) 0.7 k/uL (1.0-4.8); Lymphocytes % (A) 23 %; MCHC 33.3 g/dL (31.0-37.0); MCV 84.2 fL (80.0-100.0); Mean Platelet Volume 7.3; Monocytes # (A) 0.2 k/uL (0-1.0); Monocytes % (A) 6 %; Neutrophils # (A) 2.1 k/uL (1.3-7.7); Neutrophils % (A) 67 %; Platelet Count 179 k/uL (150-450); RDW 15.4 % (11.5-15.5); WBC 3.2 k/uL (3.8-10.6)
[2020-12-06] MEDS: ACETAMINOPHEN TAB 325 MG TAB PO PRN ×3 (06:09→18:15)
--- NOTE | 2020-12-06 08:32 | P.PN ---
Progress Note - Text Progress Note Date: 12/06/20 Postoperative day #2. Patient is resting without new complaints. She was given Dent yesterday morning and about an hour or so later unfortunately had some significant nausea and vomiting felt to be related to this. Patient is unable to take anything else for pain control due to her ALLERGIES other than Motrin and Tylenol so she was having some significant discomfort yesterday. Somewhat better today. Patient's urinating without difficulty and she states that she did pass some gas. Abdomen is soft, appropriately tender. CBC today shows her hemoglobin has improved to 10.4 and patient requests not to take the Chromogen which I feel is certainly okay. This morning she is tolerating regular diet. Plan today is to continue postoperative care. Hopefully will be able to help her pain with alternating Tylenol and Motrin. If she is continuing to do well and she could potentially go home tomorrow.
[2020-12-06] MEDS: SENNOSIDES-DOCUSATE SODIUM 1 EACH TAB PO SCH ×2 (09:17→21:02)
[2020-12-07] MEDS: IBUPROFEN 600 MG TAB PO PRN ×2 (03:03→08:44)
--- NOTE | 2020-12-07 05:50 | P.PN ---
Progress Note - Text Progress Note Date: 12/07/20 Past operative day #3. Patient is resting and feeling much better. Vital signs are stable. She does have a mild blood pressure elevation and I reviewed blood pressures from her hospitalization back in May and are very similar. I do not think this is an adhesed to be treated at this time but we did discuss monitoring as an outpatient considering treatment with her PCP if persistent elevation. Is intact and dry. Patient's tolerating regular diet, ambulating, urinating without difficulty. Patient's felt be stable for discharge home today to follow up with me in 1 week.
--- NOTE | 2020-12-07 05:56 | P.DS ---
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 Patient undergoes a total abdominal hysterectomy and bilateral salpingo-oophorectomy. Please see dictated operative note. Postoperatively patient does well but we do have issues with pain control because the patient has ALLERGIES unfortunately to [place] and Tylenol 3. Patient does continue to do okay on oral Motrin and Tylenol. I postoperative day #3 patient's felt be stable for discharge home follow up with me in 1 week Procedures: Total abdominal hysterectomy and bilateral salpingo-oophorectomy Patient Condition at Discharge: Good Plan - Discharge Summary Discharge Rx Participant: Yes New Discharge Prescriptions: New Ibuprofen [Motrin] 600 mg PO Q6HR PRN #40 tab PRN Reason: Mild Discomfort No Action Multivitamins, Thera [Multivitamin (formulary)] 1 tab PO DAILY Tamoxifen Citrate 20 mg PO DAILY Discharge Medication List Multivitamins, Thera [Multivitamin (formulary)] 1 tab PO DAILY 06/25/20 [History] Tamoxifen Citrate 20 mg PO DAILY 11/27/20 [History] Ibuprofen [Motrin] 600 mg PO Q6HR PRN #40 tab 12/07/20 [Rx] Follow up Appointment(s)/Referral(s): Franko Hickey MD [STAFF PHYSICIAN] - 12/17/20 8:30 am Patient Instructions/Handouts: Hysterectomy (DC) Activity/Diet/Wound Care/Special Instructions: No heavy lifting or strenuous activity for 6 weeks. No intercourse or anything per vagina for 6 weeks. Please call if any fever, chills, excessive vaginal bleeding, and/or abdominal pain. Discharge Disposition: HOME SELF-CARE
[2020-12-07] MEDS: ACETAMINOPHEN TAB 325 MG TAB PO PRN ×2 (06:01)
[2020-12-07 09:03] VITALS: BP 147/79; PULSE 62; TEMP 98.3
[2020-12-07] MEDS: SENNOSIDES-DOCUSATE SODIUM 1 EACH TAB PO SCH (09:04)
== END 2020-12-07 09:30 | disposition home or self-care (01) | DRG 743 ==
LOC: 2ORMAIN 05:35 → 4FBP 09:16
PROVIDERS: ADMIT Obstetrics & Gynecology; ATTEND Obstetrics & Gynecology
PROC: 0UT90ZZ Resection of Uterus, Open Approach (ICD-10-PCS; principal; 2020-12-04 07:00)
PROC: 0UT70ZZ Resection of Bilateral Fallopian Tubes, Open Approach (ICD-10-PCS; principal; 2020-12-04 07:00)
PROC: 0UT20ZZ Resection of Bilateral Ovaries, Open Approach (ICD-10-PCS; principal; 2020-12-04 07:00)
DX: D25.9 Leiomyoma of uterus, unspecified (principal); M41.9 Scoliosis, unspecified; N92.0 Excessive and frequent menstruation with regular cycle; Z85.3 Personal history of malignant neoplasm of breast; Z87.891 Personal history of nicotine dependence
CPT/HCPCS: 74018; 81025; 85025; 86850; 86900; 86901; 88309

== ENCOUNTER → 2021-01-11 | Outpatient (CLI) | payer BC ==
--- NOTE | 2021-01-11 11:12 | XR ---
EXAMINATION TYPE: XR chest 2V DATE OF EXAM: 01/11/2021 COMPARISON: NONE HISTORY: Shortness of breath after completing radiation treatment for breast cancer. TECHNIQUE: Frontal and lateral views of the chest are obtained. FINDINGS: There is no suspicious focal air space opacity, pleural effusion, or pneumothorax seen. T he cardiac silhouette size is within normal limits. Underlying levoconvex scoliosis centered in the l ower thoracic spine. Multiple surgical clips overlie the bilateral breasts. IMPRESSION: Chronic changes without acute process.
== END ==
LOC: RADXRMAIN 10:26
PROVIDERS: ATTEND Nurse Practitioner Women's Health
DX: R06.02 Shortness of breath (principal)
CPT/HCPCS: 71046

== ENCOUNTER → 2021-04-21 | Outpatient (CLI) | payer BC ==
--- NOTE | 2021-04-21 12:23 | MM ---
Reason for exam: additional evaluation requested from prior study. Last mammogram was performed 1 year ago. History: Patient is postmenopausal, has history of breast cancer at age 49, and has history of other cancer at age 29. Malignant MG pre op needle loc LT of the left breast, June 01, 2020. Malignant US breast localization RT of the right breast, June 01, 2020. 2 lumpectomies of both breasts, June 01, 2020. Malignant US breast needle core RT of the right breast, April 07, 2020. Malignant US biopsy breast VAD LT of the left breast, April 07, 2020. Taking antineoplastic beginning at age 50. Physical Findings: Nurse did not find any significant physical abnormalities on exam. MG 3D Diag Mammo W/Cad CHELO Bilateral CC, MLO, and XCCL view(s) were taken. Prior study comparison: April 07, 2020, bilateral MG diagnostic tiffanie BI wo CAD. March 17, 2020, bilateral MG diagnostic mammo w CAD CHELO. The breast tissue is heterogeneously dense. This may lower the sensitivity of mammography. Post operative changes bilaterally. Given patient's history of pre-menopausal bilateral cancer not well seen on mammogram and dense breasts, please consider screening bilateral ultrasound. Also please consider genetic counseling if clinically warranted. These results were verbally communicated with the patient and result sheet given to the patient on 04/21/21. ASSESSMENT: Benign, BI-RAD 2 RECOMMENDATION: Follow-up diagnostic mammogram of both breasts in 1 year. PATRIC
--- NOTE | 2021-04-22 09:17 | BD ---
EXAMINATION TYPE: Axial Bone Density DATE OF EXAM: 04/21/2021 COMPARISON: NONE CLINICAL HISTORY: Height: 68 Weight: 210.7 FRAX RISK QUESTIONS: Alcohol (3 or more units per day): no Family History (Parent hip fracture): no Glucocorticoids (More than 3mos): no (Ex: prednisone, prednisolone, methylprednisolone, dexamethasone, and hydrocortisone). History of Fracture in Adulthood: no Secondary Osteoporosis: 1. Type 1 Diabetes: no 2. Hyperthyroidism: no 3. Menopause before 45: no 4. Malnutrition: no 5. Chronic liver disease: no Rheumatoid Arthritis: no Current Tobacco Use: no RISK FACTORS HISTORY OF: Surgery to Spine/Hip(right/left)/Wrist (right/left): no Family History of Osteoporosis: no Active: yes Diet low in dairy products/other sources of calcium: yes Postmenopausal woman: age 50 Lost more than 2 inches in height since high school: no MEDICATIONS: hormone arlyn Additional History: pt has had breast cancer -2019 EXAM MEASUREMENTS: Bone mineral densitometry was performed using the [employer] System. Bone mineral density as measured about the Lumbar spine is: ----- L1-L4(G/cm2): 1.547 T Score Values are as follows: ----- L2: 2.4 ----- L3: 3.5 ----- L4: 3.8 ----- L1-L4: 3.1 Bone mineral density : baseline Bone mineral density about the R hip (g/cm2): 1.182 Bone mineral density about the L hip (g/cm2): 1.163 T Score values are as follows: -----R Neck: 1.0 -----L Neck: 0.9 -----R Total: 1.7 -----L Total: 1.7 Bone mineral density : baseline IMPRESSION: Normal bone mineral density. NOTE: T-SCORE=SD OF THE YOUNG ADULT MEAN.
== END | disposition home or self-care (01) ==
LOC: RADBDWWP 09:45
PROVIDERS: ATTEND Internal Medicine Hematology & Oncology
DX: Z13.820 Encounter for screening for osteoporosis (principal); R92.2 Inconclusive mammogram; Z78.0 Asymptomatic menopausal state; Z85.3 Personal history of malignant neoplasm of breast
CPT/HCPCS: 77062; 77066; 77080

== ENCOUNTER → 2022-02-01 | Outpatient (CLI) | payer BC, OTHER ==
--- NOTE | 2022-02-10 11:10 | BMR ---
EXAMINATION TYPE: MR breast BILAT wo/w con DATE OF EXAM: 02/01/2022 COMPARISON: Prior MRI bilateral breasts April 22, 2020 the bilateral breast mammogram April 21, 2021 BI -RADS 2. HISTORY: John breast cancer hx 2019, Rt side pain/soreness. Right breast radiation in past. TECHNIQUE: A series of fat and water weighted images in the long and short axis views of both breasts are obtained in conjunction with dynamic contrast MRI with subtraction technique. The patient was i njected with 9 mL intravenous Gadavist gadolinium contrast. Three-dimensional and additional postpr ocessing imaging is created on independent workstation and reviewed during official interpretation of this study. Field of view for the dynamic portion of this study was 36 cm. FINDINGS: Study is performed in consultation with [facility] radiology. Portions of there report are as fo llows. Heterogeneously dense fibroglandular tissue bilaterally is redemonstrated. No new concerning axillar y adenopathy is identified. T2 and STIR weighted images show a few scattered tiny thin-walled cysts t hroughout the left breast. They are decreased in size and number from prior. There is one round lesio n near 3:00 position well-defined of slightly is increased T1 signal and diminished T2 signal without enhancement felt to reflect debris-filled cyst. Dynamic postcontrast imaging shows mild to moderate background enhancement. Delayed dynamic imaging shows no suspicious internal mammary adenopathy. Ther e is skin and trabecular edema diffusely throughout the right breast. Multiple bilateral areas of sig nal void correlate to mammographically visualized surgical clips. Regarding the right breast: There are no masses or suspicious areas of enhancement. Architectural dis tortion and hemosiderin deposition is noted in the upper outer quadrant. Regarding the left breast: There are no masses or suspicious areas of enhancement. Architectural dist ortion and hemosiderin deposition is noted in the upper outer quadrant. IMPRESSION: No evidence of malignancy in either breast. Post lumpectomy changes in both breasts are benign. Mild skin thickening, skin and trabecular edema in the right breast is most likely the sequela radiat ion therapy. A few residual cysts are noted bilaterally. No lymphadenopathy. Recommendations: Next mammographic evaluation will be due in March 2022. If the lifetime risk of breas t cancer is greater than 20-25 percent, then next high risk screening breast MRI will be due in 12 mo nths. Clinical management right breast swelling and redness. BI-RADS category 2, benign right breast. BI-RADS category 2, benign left breast.
== END | disposition home or self-care (01) ==
LOC: RADMRIMAIN 07:33
PROVIDERS: ATTEND Surgery
DX: N60.02 Solitary cyst of left breast (principal); N60.01 Solitary cyst of right breast; N64.59 Other signs and symptoms in breast; Z92.3 Personal history of irradiation
CPT/HCPCS: 77049; C8937; A9585

== ENCOUNTER → 2022-04-22 | Outpatient (CLI) | payer BC, OTHER ==
--- NOTE | 2022-04-25 09:10 | USB ---
Reason for Exam: Clinical finding. Additional evaluation requested from prior study. Last screening mammogram was performed 12 month(s) ago. Patient History: Menarche at age 15. First Full-Term at age 29. Left ovary removed at age 50. Right ovary removed at age 50. Hysterectomy at age 50. Postmenopausal. Breast cancer, bilateral, age 49. Other cancer, age 29. 06/01/2020, Bilateral Lumpectomy. 06/01/2020, Bilateral Lumpectomy. 06/01/2020, Malignant Core Biopsy on the right side. 06/01/2020, Malignant Core Biopsy on the left side. 04/07/2020, Malignant Core Biopsy on the right side. 04/07/2020, Malignant Core Biopsy on the left side. Prior Study Comparison: 03/17/2020 Bilateral Diagnostic Mammogram, [facility]. 04/07/2020 Bilateral Diagnostic Mammogram, [facility]. 04/21/2021 Bilateral Diagnostic Mammogram, [facility]. Tissue Density: The breast tissue is heterogeneously dense. This may lower the sensitivity of mammography. Findings: Analyzed By CAD. Mammogram Appendectomy changes bilaterally. Stable benign calcifications. No new adenopathy seen.. Technique: Method: Whole Breast Handheld. Findings: RIGHT 4:00, 3CFN, anechoic, well circumscribed [id number] cyst, LEFT 1:00, 4CFN, anechoic, well circumscribed [id number] cyst, LEFT 3:00, 2CFN, anechoic, well circumscribed [id number] cyst. No solid masses seen. Overall Assessment: Benign, BI-RAD 2 Assessment: MG 3D diag mammo w/cad CHELO - Bilateral: Incomplete: need additional imaging evaluation, BI-RAD 0. US breast BILAT - Bilateral: Benign, BI-RAD 2. Management: Diagnostic Mammogram of both breasts in 1 year. A clinical breast exam by your physician is recommended on an annual basis and results should be correlated with mammographic findings. Results were given to the patient verbally at the time of exam. Electronically signed and approved by: Wali Lazo M.D. Radiologis
== END | disposition home or self-care (01) ==
LOC: RADMAMWWP 13:40
PROVIDERS: ATTEND Internal Medicine Hematology & Oncology
DX: R92.1 Mammographic calcification found on diagnostic imaging of breast (principal); Z78.0 Asymptomatic menopausal state
CPT/HCPCS: 77062; 77066

== ENCOUNTER → 2022-11-14 | Outpatient (CLI) | payer BC, OTHER ==
--- NOTE | 2022-11-15 02:46 | MR ---
EXAMINATION TYPE: MR lumbar spine wo/w con DATE OF EXAM: 11/14/2022 COMPARISON: None HISTORY: Scoliosis, back pain that radiates down right leg, breast cancer. CONTRAST: Standard multiplanar, multisequence MRI departmental protocol images were obtained without contrast a nd with 10 mL intravenous Gadavist gadolinium contrast. There is a moderate thoracolumbar dextroscoliotic deformity. No compression fracture. Disc spaces are fairly normal. There is no evidence of lumbar paraspinal mass. No lumbar spinal stenosis. No evidenc e of focal bone destruction. The visualized sacroiliac joints are intact. No pathologic enhancement. The neural foramina are fairly well maintained. IMPRESSION: There is lumbar scoliotic deformity. No evidence of any significant lumbar disc herniation or spinal stenosis.
== END | disposition home or self-care (01) ==
LOC: RADMRIMAIN 20:45
PROVIDERS: ATTEND Internal Medicine Hematology & Oncology
DX: C50.811 Malignant neoplasm of overlapping sites of right female breast (principal); C50.412 Malignant neoplasm of upper-outer quadrant of left female breast; M41.86 Other forms of scoliosis, lumbar region; M54.59 Other low back pain; Z71.3 Dietary counseling and surveillance
CPT/HCPCS: 72158; A9585

== ENCOUNTER → 2023-04-24 | Outpatient (CLI) | payer BC, OTHER ==
--- NOTE | 2023-04-24 10:32 | MM ---
Reason for Exam: Follow-up at short interval from prior study. Last screening mammogram was performed 12 month(s) ago. Patient History: Menarche at age 15. First Full-Term at age 29. Left ovary removed at age 50. Right ovary removed at age 50. Hysterectomy at age 50. Postmenopausal. Breast cancer, bilateral, age 49. Other cancer, age 29. 06/01/2020, Bilateral Lumpectomy. 06/01/2020, Bilateral Lumpectomy. 06/01/2020, Malignant Core Biopsy on the right side. 06/01/2020, Malignant Core Biopsy on the left side. 04/07/2020, Malignant Core Biopsy on the right side. 04/07/2020, Malignant Core Biopsy on the left side. Tissue Density: The breast tissue is heterogeneously dense. This may lower the sensitivity of mammography. Findings: Analyzed By CAD. Postsurgical changes bilaterally with benign-appearing dystrophic calcifications within the left breast. No new suspicious mass or worrisome cluster microcalcifications within either breast. Stable chronic nodularity within the upper outer left breast. Overall Assessment: Incomplete: need additional imaging evaluation, BI-RAD 0 Management: Diagnostic Breast Ultrasound of both breasts. A clinical breast exam by your physician is recommended on an annual basis and results should be correlated with mammographic findings. This exam should not preclude additional follow-up of suspicious palpable abnormalities. Results were given to the patient verbally at. Electronically signed and approved by: Singh Bhagat D.O.
--- NOTE | 2023-04-24 11:09 | USB ---
Reason for Exam: Follow-up at short interval from prior study. Patient History: Menarche at age 15. First Full-Term at age 29. Left ovary removed at age 50. Right ovary removed at age 50. Hysterectomy at age 50. Postmenopausal. Breast cancer, bilateral, age 49. Other cancer, age 29. 06/01/2020, Bilateral Lumpectomy. 06/01/2020, Bilateral Lumpectomy. 06/01/2020, Malignant Core Biopsy on the right side. 06/01/2020, Malignant Core Biopsy on the left side. 04/07/2020, Malignant Core Biopsy on the right side. 04/07/2020, Malignant Core Biopsy on the left side. Technique: Method: Whole Breast Handheld. Prior Study Comparison: 04/07/2020 Bilateral Diagnostic Mammogram, [facility]. 04/21/2021 Bilateral Diagnostic Mammogram, [facility]. 04/22/2022 Bilateral MG 3D diag mammo w/cad [place], [facility]. Findings: The whole breast of both breasts, the axilla of both breasts and the retroareolar of both breasts were scanned. A complete US of all four quadrants of both breasts and retro-areolar region were reviewed. Both axilla were also reviewed. Stable thin-walled cyst within the right breast at 4:00 3 cm from the nipple measuring 0.6 x 0.4 x 0.5 cm. No internal color flow. New anechoic thin-walled likely cyst within the right breast at 7:00 5 cm from the nipple measuring 0.3 x 0.3 x 0.3 cm. Increased size of heterogenous cystic lesion within the left breast at 1:00 5 cm from the nipple measuring 0.8 x 0.6 x 0.8 cm. No internal color flow identified. Previously this is anechoic and measures 0.6 x 0.5 x 0.6 cm. This may represent a cyst with internal debris. This appears well-circumscribed. New heterogenous cystic appearing lesion within the left breast at 2:00 5 cm from the nipple measuring 0.6 x 0.4 x 0.5 cm. No internal color flow identified. This is circumscribed. This may represent a cyst with debris. Simple appearing thin-walled cyst within the left breast at 3:00 is demonstrated measuring 0.9 x 0.8 x 0.9 cm. 2 cm from the nipple. Additional new cystic appearing heterogenous lesion within the left breast at 4:00 2 cm from the nipple measuring 0.4 x 0.4 x 0.5 cm. No internal color flow identified. This is circumscribed. This may represent a cyst with debris. Overall Assessment: Probably benign, BI-RAD 3 Management: Diagnostic Breast Ultrasound of the left breast in 3 months. A clinical breast exam by your physician is recommended on an annual basis and results should be correlated with mammographic findings. This exam should not preclude additional follow-up of suspicious palpable abnormalities. Results were given to the patient verbally at the time of exam. Electronically signed and approved by: Singh Bhagat D.O.
--- NOTE | 2023-04-24 11:33 | BD ---
EXAMINATION TYPE: Axial Bone Density DATE OF EXAM: 04/24/2023 CLINICAL HISTORY: 52 years old Female. ICD-10 CODE: C50.412 MALIGNANT NEOPLASM Height: 67.5in Weight: 197lb FRAX RISK QUESTIONS: Secondary Osteoporosis: RISK FACTORS HISTORY OF: Family History of Osteoporosis: yes Active: yes Postmenopausal woman: yes MEDICATIONS: Additional Medications: hormone arlyn, vitamin d Additional History: history of breast cancer EXAM MEASUREMENTS: Bone mineral densitometry was performed using the [employer]. System. Bone mineral density as measured about the Lumbar spine is: ----- L1-L4(G/cm2): 1.562 T Score Values are as follows: ----- L1: 2.1 ----- L2: 2.9 ----- L3: 3.5 ----- L4: 4.2 ----- L1-L4: 3.2 Z Score Values are as follows: ----- L1: 1.9 ----- L2: 2.7 ----- L3: 3.3 ----- L4: 4.0 ----- L1-L4: 3.0 Bone mineral density has: Increased 1.0% since study of: 04-21-21 Bone mineral density about the R hip (g/cm2): 1.197 Bone mineral density about the L hip (g/cm2): 1.241 T Score values are as follows: -----R Neck: 1.2 -----L Neck: 0.8 -----R Total: 1.5 -----L Total: 1.9 Z Score values are as follows: -----R Neck: 1.6 -----L Neck: 1.2 -----R Total: 1.5 -----L Total: 1.8 Bone mineral density has: Decreased -0.5% since study of: 04-21-21 FRAX%s: The graph provided illustrates a 3.9% chance for a major osteoporotic fx and a 0% chance for the hips probability for fx in 10 years time. IMPRESSION: Normal (Values between +1 and -1 indicate normal bone mass). Consider repeating this study in 5 year s or sooner if there is some new clinical indication. NOTE: T-SCORE=SD OF THE YOUNG ADULT MEAN.
== END | disposition home or self-care (01) ==
LOC: RADMAMWWP 09:15
PROVIDERS: ATTEND Internal Medicine Hematology & Oncology
DX: Z12.31 Encounter for screening mammogram for malignant neoplasm of breast (principal); C50.811 Malignant neoplasm of overlapping sites of right female breast; C50.412 Malignant neoplasm of upper-outer quadrant of left female breast; Z71.3 Dietary counseling and surveillance; Z78.0 Asymptomatic menopausal state; Z85.3 Personal history of malignant neoplasm of breast
CPT/HCPCS: 77062; 77066; 77080

== ENCOUNTER 2023-12-05 09:34 | Day surgery (SDC) | payer BC, OTHER ==
[~2023-12-05 09:34] MED LIST changes: -ACETAMINOPHEN TAB 500 MG TAB PO ONE; -DEXAMETHASONE SOD PHOSPHATE 10 MG/ML 1 ML VIAL IV ONE; -HEPARIN SODIUM,PORCINE 5,000 UNIT/ML 1 ML VIAL SQ ONE; -HYDROmorphone 0.5 MG/0.5 ML SYRINGE IVP PRN; -LACTATED RINGERS 1,000 ML IV SCH; +LIDOCAINE 1% (10MG/ML) FOR IV START INTRADERMA PRN; -ONDANSETRON 4 MG/2 ML VIAL IVP ONE; -Pre Op ABX Message 1 EACH MISC MISCELLANE ONE
[2023-12-05] MEDS: LACTATED RINGERS 1,000 ML IV SCH (09:55)
[2023-12-05] MEDS ORDERED: PROPOFOL 10 MG/ML 20 ML VIAL IV ONE (10:16)
[2023-12-05] MEDS ORDERED: LIDOCAINE 1% INJ 10MG/ML (20 ML MDV) ONE (10:16)
--- NOTE | 2023-12-05 10:20 | P.GSHP ---
History of Present Illness H&P Date: 12/05/23 Chief Complaint: Colon cancer screening 53-year-old female here for colonoscopy. She has not had one previously. History of breast cancer. No bowel complaints. Past Medical History Past Medical History: Cancer Additional Past Medical History / Comment(s): current john breast CA 2020-had surg. & radiation, had infection in breasts after surgery, Hx of scoliosis, cervical cancer, "minor leaky valve" History of Any Multi-Drug Resistant Organisms: None Reported Past Surgical History: Breast Surgery, Hysterectomy, Orthopedic Surgery Additional Past Surgical History / Comment(s): John breast lumpectomies sentinal node bxs 06-01-20,Hx cervical cancer - cone biopsy, hx of knee surgery as child, wisdom teeth removed. Past Anesthesia/Blood Transfusion Reactions: Postoperative Nausea & Vomiting (PONV) Additional Past Anesthesia/Blood Transfusion Reaction / Comment(s): Mom PONV. Smoking Status: Former smoker - Past Family History Mother Family Medical History: No Reported History Brother(s) Family Medical History: AFIB Additional Family Medical History / Comment(s): AFIB with ablation. Father Family Medical History: Myocardial Infarction (ND) Medications and Allergies Home Medications Medication Instructions Recorded Confirmed Type Tamoxifen Citrate 20 mg PO HS 11/27/20 11/30/23 History Acetaminophen Tab [Tylenol] 650 mg PO Q6H PRN 11/30/23 11/30/23 History Cholecalciferol [Vitamin D3 (25 25 mcg PO DAILY 11/30/23 11/30/23 History Mcg = 1000 Iu)] Magnesium 200 mg PO DAILY 11/30/23 11/30/23 History Potassium Gluconate 99 mg PO DAILY 11/30/23 11/30/23 History Vitamin E (Dl,Tocopheryl Acet) 400 unit PO DAILY 11/30/23 11/30/23 History [Vitamin E (400 Iu = 180 mg)] Allergies Allergy/AdvReac Type Severity Reaction Status Date / Time adhesive tape Allergy Rash/Hives Verified 11/30/23 11:54 metronidazole [From Flagyl] Allergy Swelling Verified 11/30/23 11:54 oxycodone AdvReac Nausea & Verified 11/30/23 11:54 Vomiting Surgical - Exam Vital Signs Temp Pulse BP Pulse Ox 97.8 F 72 141/69 98 12/05/23 10:15 12/05/23 10:15 12/05/23 10:15 12/05/23 10:15 Physical exam: General: Well-developed, well-nourished HEENT: Normocephalic, sclerae nonicteric Abdomen: Nontender, nondistended Extremities: No edema Neuro: Alert and oriented Assessment and Plan (1) Colon cancer screening Narrative/Plan: Will proceed with colonoscopy at this time Current Visit: Yes Status: Acute Code(s): Z12.11 - ENCOUNTER FOR SCREENING FOR MALIGNANT NEOPLASM OF COLON SNOMED Code(s): 426224236
--- NOTE | 2023-12-05 10:32 | P.PCN ---
Date of Procedure: 12/05/23 Procedure(s) Performed: PREOPERATIVE DIAGNOSIS: Colon cancer screening POSTOPERATIVE DIAGNOSIS: Diverticulosis PROCEDURE: Colonoscopy ANESTHESIA: MAC SURGEON: Roshan Feliciano M.D. SPECIMENS: None ENDOSCOPIC PROCEDURE: The patient was placed on the endoscopy table in the left decubitus position. The Olympus colonoscope was inserted into the anus and passed under direct visualization to the base of the cecum. The appendiceal orifice was visualized. From that point the scope was slowly withdrawn inspe cting all surfaces carefully. There were no neoplastic inflammatory or polypoid lesions throughout the cecum, ascending, transverse, descending, sigmoid and rectum. There was mild left-sided diverticulosis noted. Digital rectal examination was normal. The patient was taken to the recovery room in stable condition per anesthesia guidelines. RECOMMENDATIONS: Resume diet. Repeat colonoscopy 10 years.
[2023-12-05 10:35] VITALS: PULSE 72; TEMP 97.8
[2023-12-05 11:05] VITALS: BP 111/72; RESP 18
== END 2023-12-05 11:15 | disposition home or self-care (01) ==
LOC: ORWHC2ENDO 09:34
PROVIDERS: ATTEND Surgery
DX: Z12.11 Encounter for screening for malignant neoplasm of colon (principal); K57.30 Diverticulosis of large intestine without perforation or abscess without bleeding; Z87.891 Personal history of nicotine dependence; Z79.899 Other long term (current) drug therapy; Z88.3 Allergy status to other anti-infective agents; Z88.5 Allergy status to narcotic agent; Z91.09 Other allergy status, other than to drugs and biological substances; Z79.810 Long term (current) use of selective estrogen receptor modulators (SERMs)
CPT/HCPCS: 45378; J2001; J2704

== ENCOUNTER → 2024-04-26 | Outpatient (CLI) | payer BC, OTHER ==
--- NOTE | 2024-04-26 09:42 | MM ---
Reason for Exam: Additional evaluation requested from prior study. Last screening mammogram was performed 12 month(s) ago. Patient History: Menarche at age 15. First Full-Term at age 29. Left ovary removed at age 50. Right ovary removed at age 50. Hysterectomy at age 50. Postmenopausal. Breast cancer, bilateral, age 49. Other cancer, age 29. 07/10/2023, Benign US biopsy breast VAD RT on the right side. 06/01/2020, Bilateral Lumpectomy. 06/01/2020, Bilateral Lumpectomy. 06/01/2020, Malignant Core Biopsy on the right side. 06/01/2020, Malignant Core Biopsy on the left side. 04/07/2020, Malignant Core Biopsy on the right side. 04/07/2020, Malignant Core Biopsy on the left side. Prior Study Comparison: 03/17/2020 Bilateral Diagnostic Mammogram, [facility]. 04/21/2021 Bilateral Diagnostic Mammogram, [facility]. 04/24/2023 Bilateral MG 3D diag mammo w/cad [place], [facility]. Tissue Density: The breasts are heterogeneously dense, which may obscure small masses. Findings: Analyzed By CAD. Postsurgical and posttreatment changes bilaterally. Area of nodular asymmetric density lateral left CC view remains unchanged. Microclip in the right breast from prior biopsy. A 3 mm area of nodularity central right MLO view posterior depth is noted. But not well seen on spot compression view. Otherwise, no significant change. Overall Assessment: Incomplete: need additional imaging evaluation, BI-RAD 0 Management: Diagnostic Breast Ultrasound of both breasts. Electronically signed and approved by: Davon Cardenas M.D. Radiologist
--- NOTE | 2024-04-26 10:27 | USB ---
Reason for Exam: Additional evaluation requested from abnormal screening. Patient History: Menarche at age 15. First Full-Term at age 29. Left ovary removed at age 50. Right ovary removed at age 50. Hysterectomy at age 50. Postmenopausal. Breast cancer, bilateral, age 49. Other cancer, age 29. 07/10/2023, Benign US biopsy breast VAD RT on the right side. 06/01/2020, Bilateral Lumpectomy. 06/01/2020, Bilateral Lumpectomy. 06/01/2020, Malignant Core Biopsy on the right side. 06/01/2020, Malignant Core Biopsy on the left side. 04/07/2020, Malignant Core Biopsy on the right side. 04/07/2020, Malignant Core Biopsy on the left side. Technique: Method: Whole Breast Handheld. Prior Study Comparison: 04/21/2021 Bilateral Diagnostic Mammogram, [facility]. 04/22/2022 Bilateral MG 3D diag mammo w/cad [place], [facility]. 04/24/2023 Bilateral US breast BILAT, [facility]. 04/24/2023 Bilateral MG 3D diag mammo w/cad [place], [facility]. 07/09/2023 Right US breast limited RT, [facility]. 07/26/2023 Left US breast limited LT, [facility]. Findings: The whole breast of both breasts, the axilla of both breasts and the retroareolar of both breasts were scanned. A complete US of all four quadrants of the breast common axilla, and retro-areolar region were reviewed. On the right, clip at the 6:00 position from recent biopsy. Tiny 3 mm cyst 7:00, 3 cm from the nipple. Small 6 mm cyst 5:00 position, 5 cm from the nipple. No other solid or cystic lesion or axillary lymphadenopathy. On the left, scattered benign cysts are present measuring 5 mm at 1:00, 8 mm at 1:00, 1 cm at 3:00, and 5 mm at 5:00. Otherwise, no suspicious solid lesion or axillary lymphadenopathy. Overall Assessment: Probably benign, BI-RAD 3 Management: Diagnostic Mammogram of the right breast in 6 months. A clinical breast exam by your physician is recommended on an annual basis and results should be correlated with mammographic findings. This exam should not preclude additional follow-up of suspicious palpable abnormalities. Results were given to the patient verbally at the time of exam. Electronically signed and approved by: Davon Cardenas M.D. Radiologist
== END | disposition home or self-care (01) ==
LOC: RADMAMWWP 08:52
PROVIDERS: ATTEND Internal Medicine Hematology & Oncology
DX: C50.811 Malignant neoplasm of overlapping sites of right female breast (principal); C50.412 Malignant neoplasm of upper-outer quadrant of left female breast; M54.59 Other low back pain; R92.333 Mammographic heterogeneous density, bilateral breasts; Z71.3 Dietary counseling and surveillance; Z78.0 Asymptomatic menopausal state
CPT/HCPCS: 77062; 77066

== ENCOUNTER → 2024-10-28 | Outpatient (CLI) | payer BC, OTHER ==
--- NOTE | 2024-10-28 14:54 | MM ---
Reason for Exam: Follow-up at short interval from prior study. Last screening mammogram was performed 6 month(s) ago. Patient History: Menarche at age 15. First Full-Term at age 29. Left ovary removed at age 50. Right ovary removed at age 50. Hysterectomy at age 50. Postmenopausal. Breast cancer, bilateral, age 49. Previous chest radiation therapy at age 50. Patient tested for BRCA1 outcome was negative. Patient tested for BRCA2 outcome was negative. 07/10/2023, Benign US biopsy breast VAD RT on the right side. 06/01/2020, Bilateral Lumpectomy. 06/01/2020, Bilateral Lumpectomy. 06/01/2020, Malignant Core Biopsy on the right side. 06/01/2020, Malignant Core Biopsy on the left side. 04/07/2020, Malignant Core Biopsy on the right side. 04/07/2020, Malignant Core Biopsy on the left side. Sister had breast cancer, age 43. Prior Study Comparison: 04/22/2022 Bilateral MG 3D diag mammo w/cad [place], [facility]. 04/24/2023 Bilateral MG 3D diag mammo w/cad [place], [facility]. 04/26/2024 Bilateral MG 3D diag mammo w/cad [place], [facility]. Tissue Density: Right: The breasts are heterogeneously dense, which may obscure small masses. Findings: Analyzed By CAD. Pattern is stable. Multiple surgical clips from a lumpectomy on the upper outer right breast. Core marker is within the anterior right breast. No significant interval change is evident. No suspicious groups of microcalcifications, spiculated or lobular masses, architectural distortion or other secondary signs of malignancy are mammographically apparent. Overall Assessment: Benign, BI-RAD 2 Management: Screening Mammogram of both breasts in 6 months. A negative mammogram report should not preclude additional follow up of suspicious palpable abnormalities. Patient should continue monthly self breast exam. A clinical breast exam by your physician is recommended on an annual basis and results should be correlated with mammographic findings. Note on Yuko scores and lifetime risk: 1. A Yuko score greater than 3% is considered moderate risk. If this is the case, consider specialist referral to assess eligibility for a risk reducing agent. 2. If overall lifetime risk for the development of breast cancer is 20% or higher, the patient may qualify for future screening with alternating mammogram and breast MRI. [facility], , 10/28/2024 2:51 PM. Electronically signed and approved by: Marko Arriola D.O. Radiologis
== END | disposition home or self-care (01) ==
LOC: RADMAMWWP 14:03
PROVIDERS: ATTEND Internal Medicine Hematology & Oncology
DX: C50.811 Malignant neoplasm of overlapping sites of right female breast (principal); C50.412 Malignant neoplasm of upper-outer quadrant of left female breast; M54.59 Other low back pain; Z71.3 Dietary counseling and surveillance; Z90.722 Acquired absence of ovaries, bilateral; R92.331 Mammographic heterogeneous density, right breast; Z98.82 Breast implant status
CPT/HCPCS: 77061; 77065

== ENCOUNTER → 2025-04-29 | Outpatient (CLI) | payer BC, OTHER ==
--- NOTE | 2025-04-29 17:24 | BD ---
EXAMINATION TYPE: Axial Bone Density DATE OF EXAM: 04/29/2025 CLINICAL HISTORY: 54 years old Female. ICD-10 CODE: C50.412 MALIGNANT NEOPLASM LT BR , Additional H istory: Height: 68 Weight: 178.3 FRAX RISK QUESTIONS: Alcohol (3 or more units per day): no Family History (Parent hip fracture): no Glucocorticoids (More than 3mos): no (Ex: prednisone, prednisolone, methylprednisolone, dexamethasone, and hydrocortisone). History of Fracture in Adulthood: no Secondary Osteoporosis: 1. Type 1 Diabetes: no 2. Hyperthyroidism: no 3. Menopause before 45: no 4. Malnutrition: no 5. Chronic liver disease: no Rheumatoid Arthritis: no Current Tobacco Use: no RISK FACTORS HISTORY OF: Hip Fracture (Right/Left): no Spine Fracture: no History of Wrist Fracture: no Surgery to Spine/Hip(right/left)/Wrist (right/left): no MEDICATIONS: Thyroid Medications: no Osteoporosis Medications: no EXAM MEASUREMENTS: Bone mineral densitometry was performed using the [employer] System. Bone mineral density as measured about the Lumbar spine is: ----- L1-L4(G/cm2): 1.504 T Score Values are as follows: ----- L1: 1.2 ----- L2: 1.6 ----- L3: 3.7 ----- L4: 4.2 ----- L1-L4: 2.7 Z Score Values are as follows: ----- L1: 1.4 ----- L2: 1.9 ----- L3: 4.0 ----- L4: 4.4 ----- L1-L4: 2.9 Bone mineral density has: decreased -3.7 % since study of: 04/24/2023 Bone mineral density about the R hip (g/cm2): 1.176 Bone mineral density about the L hip (g/cm2): 1.182 T Score values are as follows: -----R Neck: 0.9 -----L Neck: 0.8 -----R Total: 1.3 -----L Total: 1.4 Z Score values are as follows: -----R Neck: 1.5 -----L Neck: 1.4 -----R Total: 1.6 -----L Total: 1.6 Bone mineral density has: decreased -3.3 % since study of: 04/24/2023 FRAX%s: The graph provided illustrates a 4.6% chance for a major osteoporotic fx and a 0.0% chance fo r the hips probability for fx in 10 years time. IMPRESSION: Normal (Values between +1 and -1 indicate normal bone mass). Consider repeating this study in 5 year s or sooner if there is some new clinical indication. NOTE: T-SCORE=SD OF THE YOUNG ADULT MEAN. [facility], , 04/29/2025 5:22 PM
--- NOTE | 2025-04-29 17:55 | MM ---
Reason for Exam: Screening (asymptomatic). Last mammogram was performed 1 year(s) and 1 month(s) ago. Patient History: Menarche at age 15. First Full-Term at age 29. Left ovary removed at age 50. Right ovary removed at age 50. Hysterectomy at age 50. Postmenopausal. Breast cancer, bilateral, age 49. Previous chest radiation therapy at age 50. Patient tested for BRCA1 outcome was negative. Patient tested for BRCA2 outcome was negative. 07/10/2023, Benign US biopsy breast VAD RT on the right side. 06/01/2020, Bilateral Lumpectomy. 06/01/2020, Bilateral Lumpectomy. 06/01/2020, Malignant Core Biopsy on the right side. 06/01/2020, Malignant Core Biopsy on the left side. 04/07/2020, Malignant Core Biopsy on the right side. 04/07/2020, Malignant Core Biopsy on the left side. Sister had breast cancer, age 43. Prior Study Comparison: 04/24/2023 Bilateral MG 3D diag mammo w/cad [place], [facility]. 04/26/2024 Bilateral MG 3D diag mammo w/cad [place], [facility]. 10/28/2024 Right MG 3D diag mammo w/cad RT, [facility]. Tissue Density: The breasts are heterogeneously dense, which may obscure small masses. Findings: Analyzed By CAD. Postsurgical and posttraumatic changes on both sides. Microclip anterior right breast from prior biopsy. Chronic nodularity central outer left cc view middle depth. Fat necrosis calcification redemonstrated upper-outer quadrant left breast. Areas of asymmetric density are unchanged. There is no suspicious group of microcalcifications or new suspicious mass in either breast. Overall Assessment: Benign, BI-RAD 2 Management: Screening Mammogram of both breasts in 1 year. Patient should continue monthly self-breast exams. A clinical breast exam by your physician is recommended on an annual basis. This exam should not preclude additional follow-up of suspicious palpable abnormalities. [facility], , 04/29/2025 5:52 PM. Electronically signed and approved by: Davon Cardenas M.D. Radiologist
== END | disposition home or self-care (01) ==
LOC: RADMAMWWP 11:08
PROVIDERS: ATTEND Internal Medicine Hematology & Oncology
DX: Z12.31 Encounter for screening mammogram for malignant neoplasm of breast (principal); C50.412 Malignant neoplasm of upper-outer quadrant of left female breast; C50.811 Malignant neoplasm of overlapping sites of right female breast; M54.59 Other low back pain; R92.333 Mammographic heterogeneous density, bilateral breasts; N64.1 Fat necrosis of breast; R92.1 Mammographic calcification found on diagnostic imaging of breast; Z71.3 Dietary counseling and surveillance; Z80.3 Family history of malignant neoplasm of breast; Z78.0 Asymptomatic menopausal state
CPT/HCPCS: 77063; 77067; 77080